=== PATIENT | female | born 1975 | race Caucasian/White ===

== ENCOUNTER → 2016-12-18 | Outpatient (CLI) | payer OTHER ==
--- NOTE | 2016-12-18 14:05 | REP ---
MAXILLOFACIAL CT WITHOUT CONTRAST: HISTORY: Chronic pansinusitis. The patient is status post right middle nasal turbinectomy and partial right ethmoidectomy and uncinectomy. Minimal mucosal thickening is present in the maxillary, ethmoid and right sphenoid sinuses. The remaining sinuses are clear. The left osteomeatal unit is patent. The inferior and left middle nasal turbinates are partially paradoxical. There is very minimal deviation of the nasal septum to the right. The cribriform plate, medial perry of the orbits, and optic canals are intact. The carotid canals form a segment of the postero lateral perry of the sphenoid sinus. The sphenoid sinus septa insert into the internal carotid canal perry. IMPRESSION: 1. Postoperative change as described above. 2. Sinus mucosal thickening as described above. Signed by Jonny Wright MD 12/18/2016 02:23 P
== END ==
LOC: M RAD 13:12
PROVIDERS: ATTEND Otolaryngology
DX: J32.4 Chronic pansinusitis (principal)